=== PATIENT | female | born 1975 | race Caucasian/White ===

== ENCOUNTER → 2018-03-11 | Outpatient (CLI) | payer OTHER ==
--- NOTE | 2018-03-11 16:54 | RAD ---
Clinical Indications: Visual disturbance. Exam : Carotid Duplex with Grayscale Ultrasound and Spectral and Color Doppler Analysis: PQRS Compliance Statement - Stenosis calculations for CT, MR and conventional angiography are based upon measurement of the distal ICA diameter in accordance with the NASCET methodology. Stenosis calculations for carotid ultrasound studies are derived from validated velocity criteria which are known to correlate with the NASCET methodology. Comparison study: None available. Findings: The common, internal and external carotid arteries were examined by grayscale, color and spectral Doppler ultrasound. Moderate atherosclerotic calcifications identified in the bilateral carotid bulbs. Flow in both vertebral arteries was antegrade and normal. The following are the velocities and ratios in the carotid arteries on both sides: RIGHT ICA PV: 130cm/sec RIGHT CCA PV: 88cm/sec RIGHT ICA ED: 67cm/sec RIGHT IC/CCPV: 1.5 RIGHT VERTEBRAL: antegrade flow RIGHT % STENOSIS: 50-69% LEFT ICA PV: 125cm/sec LEFT CCA PV: 116cm/sec LEFT ICA ED: 56cm/sec LEFT IC/CCPV: 1.1 LEFT VERTEBRAL: antegrade flow LEFT % STENOSIS: 50-69% <50% ICA Stenosis: PSV < 125cm/s (EDV < 40cm/s; SVR < 2.0) 50-69% ICA Stenosis: PSV < 125-229cm/s (EDV 40-99cm/s; SVR 2.0-3.9) >70% ICA Stenosis: PSV > 230cm/s (EDV >100cm/s; SVR >4.0) Impression: 1. 50-69% stenosis identified in the bilateral internal carotid arteries. However the ICA to CCA velocity ratios are within normal range. Consider CT angiogram for further evaluation if clinically feasible. Electronically signed by: Chivo Mullen MD (03/11/2018 4:50 PM) [place] [id number]
== END | disposition home or self-care (01) ==
LOC: US 14:01
PROVIDERS: ATTEND Psychiatry & Neurology Neurology
DX: I65.23 Occlusion and stenosis of bilateral carotid arteries (principal)
CPT/HCPCS: 93880